=== PATIENT | female | born 1985 | race Caucasian/White ===

== ENCOUNTER 2023-06-05 19:38 | Emergency (ER) | payer OTHER, SELFPAY ==
[~2023-06-05 19:38] MED LIST: Iopamidol 300 61% 100 ML VIAL FS ONE
[2023-06-05] MEDS ORDERED: Ondansetron PF 4 MG/2 ML Vial ONE (20:49)
[2023-06-05 20:51] LABS: #Basophils 0.1 10x3/uL (0.0-0.2); #Monocytes 1.2 10x3/uL (0.0-1.1); #Neutrophils 14.2 10x3/uL (1.5-8.4); %Basophils 0.6 % (0.0-2.0); %Eosinophils 0.1 % (0.0-6.0); %Lymphocytes 6.1 % (18.0-47.0); %Neutrophils 83.9 % (40.0-75.0); Hemoglobin 13.6 g/dL (12.0-15.5); Mean Corpuscular HGB CONC 36.8 g/dL (32.0-36.0); Mean Corpuscular Hemoglobin 38.3 pg (27.0-33.0); Mean Corpuscular Volume 104.2 fl (81.6-98.3); Mean Platelet Volume 9.1 fl (7.4-10.4); Platelet Count 297 10x3/uL (150-450); RBC Distribution Width 16.7 % (11.5-14.5); Red Blood Cell (RBC) Count 3.55 10x6/uL (3.90-5.03)
[2023-06-05 21:03] LABS: INR-International Normal Ratio 1.9; Prothrombin Time 19.8 sec (9.5-12.1)
[2023-06-05 21:07] LABS: ALT (SGPT) 59 U/L (8-55); AST (SGOT) 167 U/L (5-34); Albumin 2.6 g/dL (3.5-5.0); Alkaline Phosphatase 219 U/L (40-110); Anion Gap 16 mmol/L (10-20); BUN (Urea Nitrogen) 5 mg/dL (7.0-18.7); Calc. Creatinine Clearance 0 mL/min (70-130); Calcium 8.6 mg/dL (7.8-10.44); Carbon Dioxide 26 mmol/L (22-29); Chloride 90 mmol/L (98-107); Estimated GFR 115; Globulin 4.6 g/dL (2.4-3.5); Glucose 155 mg/dL (70-105); Potassium 3.1 mmol/L (3.5-5.1); Protein, Total 7.2 g/dL (6.0-8.3); Sodium 129 mmol/L (136-145)
[2023-06-05 21:09] LABS: Acetaminophen Less than 10 mcg/mL (10.0-30.0); Lipase 92 U/L (8-78)
[2023-06-05] MEDS ORDERED: Morphine 2 MG/ML VIAL ONE ×2 (21:13→23:35)
== END 2023-06-06 00:49 | disposition short-term general hospital (02) ==
LOC: CSHERS 19:38
DX: R17 Unspecified jaundice (principal); R79.1 Abnormal coagulation profile; I11.0 Hypertensive heart disease with heart failure; I50.9 Heart failure, unspecified; K21.9 Gastro-esophageal reflux disease without esophagitis; F17.200 Nicotine dependence, unspecified, uncomplicated
CPT/HCPCS: 36415; 71045; 74177; 80053; 80143; 82140; 82977; 83615; 83690; 85025; 85610; 85730; 93005; 96374; 96375; 96376; 80307; J2272; J2405; Q9967

== ENCOUNTER 2023-12-07 21:33 | Emergency (ER) | payer OTHER ==
[2023-12-07 22:17] LABS: #Monocytes 0.2 10x3/uL (0.0-1.1); #Neutrophils 3.8 10x3/uL (1.5-8.4); %Basophils 0.9 % (0.0-2.0); %Eosinophils 0.2 % (0.0-6.0); %Lymphocytes 9.4 % (18.0-47.0); %Monocytes 5.3 % (0.0-10.0); Hematocrit 27.9 % (34.9-44.5); Hemoglobin 9.2 g/dL (12.0-15.5); Mean Corpuscular Hemoglobin 31.5 pg (27.0-33.0); Mean Corpuscular Volume 95.5 fl (81.6-98.3); Mean Platelet Volume 12.1 fl (7.4-10.4); Platelet Count 33 10x3/uL (150-450); RBC Distribution Width 19.7 % (11.5-14.5); Red Blood Cell (RBC) Count 2.92 10x6/uL (3.90-5.03); White Blood Cell (WBC) Count 4.6 10x3/uL (3.5-10.5)
[2023-12-07 22:18] LABS: BHCG - Serum Negative (NEGATIVE); Pregs Control Background? CLEAR/WHITE (CLR/WHITE); Pregs Control Bar Appear? YES (CONTROL BAR)
[2023-12-07 22:23] LABS: INR-International Normal Ratio 1.5; PTT 36.9 sec (22.0-33.0); Prothrombin Time 15.5 sec (9.5-12.1)
[2023-12-07 22:25] LABS: Acetaminophen Less than 10 mcg/mL (10.0-30.0); Alcohol 239.9 mg/dL (Less than 10); Lipase 68 U/L (8-78); Magnesium 1.5 mg/dL (1.6-2.6); Salicylate Less than 8.0 mg/dL (15.0-30.0)
[2023-12-07 22:26] LABS: ALT (SGPT) 36 U/L (8-55); AST (SGOT) 141 U/L (5-34); Albumin 3.2 g/dL (3.5-5.0); Alkaline Phosphatase 126 U/L (40-110); Anion Gap 14 mmol/L (10-20); BUN (Urea Nitrogen) Less than 4 mg/dL (7.0-18.7); Bilirubin, Total 3.6 mg/dL (0.2-1.2); Calc. Creatinine Clearance 0 mL/min (70-130); Calcium 7.7 mg/dL (7.8-10.44); Carbon Dioxide 23 mmol/L (22-29); Chloride 105 mmol/L (98-107); Estimated GFR 121; Globulin 3.6 g/dL (2.4-3.5); Glucose 103 mg/dL (70-105); Potassium 3.3 mmol/L (3.5-5.1); Protein, Total 6.8 g/dL (6.0-8.3); Sodium 139 mmol/L (136-145)
[2023-12-07 22:42] LABS: Bilirubin Neg (Negative); Blood, Urine Negative (Negative); Clarity Clear (Clear); Glucose, Urine (Dipstick) Normal (Negative); Ketone, Urine 5 mg/dL (Negative); Leukocyte Negative (Negative); Nitrite Negative (Negative); Protein, Urine (Dipstick) 15 mg/dl (Neg-Trace); Specific Gravity, Urine 1.015 (1.005-1.030)
[2023-12-07 22:51] LABS: Amphetamine Not Detected (NotDetected); Bacteria/HPF None Seen HPF (None Seen); Barbiturates Screen Not Detected (NotDetected); Benzodiazepine Screen Not Detected (NotDetected); CAUTI Indications for Culture Dysuria,urgency,freq; Cocaine Metabolite Screen Not Detected (NotDetected); Methadone Not Detected (NotDetected); Methamphetamine Not Detected (NotDetected); Opiate Screen Not Detected (NotDetected); Oxycodone Screen Not Detected (NotDetected); Phencyclidine (PCP) Not Detected (NotDetected); RBC/HPF 0-3 HPF (0-3); Squamous Epithelial 0-3 HPF (0-3); THC/Cannabinoid Screen Detected (NotDetected); Tricyclic Screen Not Detected (NotDetected); WBC/HPF 0-3 HPF (0-3)
[2023-12-07 22:52] LABS: Urine Culture Reflex No No
== END 2023-12-08 00:40 | disposition home or self-care (01) ==
LOC: CSHERS 21:33
DX: K70.30 Alcoholic cirrhosis of liver without ascites (principal); F10.929 Alcohol use, unspecified with intoxication, unspecified; F17.210 Nicotine dependence, cigarettes, uncomplicated; I11.0 Hypertensive heart disease with heart failure; I50.9 Heart failure, unspecified; K21.9 Gastro-esophageal reflux disease without esophagitis; J45.909 Unspecified asthma, uncomplicated; Z79.51 Long term (current) use of inhaled steroids; Z79.899 Other long term (current) drug therapy
CPT/HCPCS: 80053; 80306; 80307; 81001; 83690; 83735; 84703; 85025; 85610; 85730; 93005